=== PATIENT | male | born 1955 | race Caucasian/White ===

== ENCOUNTER 2017-02-01 18:59 | Inpatient (IN) | payer OTHER ==
[2017-02-01] VITALS (10 sets, daily range): BP systolic 66–91; BP diastolic 28–53; PULSE 24–120; RESP 16–27; O2SAT 99–100
[~2017-02-01 18:59] MED LIST: FURO40TA4 PO; OXYC10TA8 PO; OXYC5TAB72 PO; PANT40TA3 PO; PREN1TAB25 PO; Pantoprazole Inj 80 MG in 0.9% Sodium Chloride 80 ML IV SCH; SPIR100T3 PO; THIA100T64 PO
[2017-02-01] MEDS ORDERED: 0.9% Sodium Chloride 1,000 ML IV ONE (19:06)
[2017-02-01] MEDS ORDERED: Pantoprazole 4 mg/mL 10 mL Inj IVPUSH ONE (19:10)
[2017-02-01] MEDS ORDERED: Pantoprazole Inj 80 MG, Pharmacy To Mix 1 EA in 0.9% Sodium Chloride 80 ML IV ONE ×2 (19:10)
[2017-02-01] MEDS ORDERED: Octreotide Inj 500 MCG in 0.9% Sodium Chloride 100 ML IV ONE (19:10)
--- NOTE | 2017-02-01 19:14 | ED.REPORT ---
HPI-GI Bleed Date of Service Feb 01, 2017 ED Provider: Sonu Gonzalez MD Patient is a 61 year old male with a history of end stage liver disease, known esophageal varices and previous banding, alcoholic/viral liver cirrhosis, hepatitis B, hepatitis C who presents to the ED via EMS with 2 episodes of large -volume gross hematemesis that occurred at 1200 today. Patient was hypotensive en route with a systolic BP in 80's - 90's. EMS gave the patient 100mg of fentanyl, Zofran and 500cc of fluids en route. He describes to episodes of bright red emesis. Patient reports that he has felt lightheaded. Family reports that he has one episode previously and was able to be stabilized. Code status is discussed with the patient and he would like to be full code at this time. Nursing Notes Stated Complaint: VOMITING BLOOD Nursing Notes Reviewed: Yes Allergies: Uncoded Allergies: ANESTHETICS (Allergy, Severe, PROLONGED SEDATION, 04/14/16) Scheduled Furosemide (Furosemide) 40 Mg Tablet 40 MG PO DAILY Lactulose (Constulose) 10 Gm/15 Ml Solution 15 ML PO Q2DAY Pantoprazole DR (Pantoprazole DR) 40 Mg Tablet.dr 40 MG PO BID Vit#96/Ferrous Fum/FA ( Tablet) 1 Each Tablet 1 TABLET PO DAILY Spironolactone (Spironolactone) 100 Mg Tablet 100 MG PO DAILY Thiamine Mononitrate (Vitamin B-1) 100 Mg Tablet 100 MG PO DAILY Scheduled PRN oxyCODONE (oxyCODONE) 15 Mg Tablet 15 MG PO QID PRN PRN For Pain General Time Seen by Provider: 18:59 Chief Complaint Chief Complaint: Vomiting bright red blood Hx Obtained From: Patient Arrived By: Ambulance Onset Occurred: 1 - 4 hours ago Symptom Duration: Since onset Progression Since Onset: Unchanged Associated with: Reports: Faintness Pertinent Negative: Pt denies other symptoms Recent Healthcare: Recent doctor visit, Recent hospitalization Risk-GI Bleed Bleeding Risk Stratification RF Statements: Risk factors reviewed Past Medical History Past Medical History Alcoholic liver cirrhosis Nephritis Esophageal varices and banding Chronic back pain Hepatitis C Hepatitis B Past Surgical History None reported. Smoking History Current Every Day Smoker Social History Alcohol Use: >5 per day Drug Use: Denies drug use Other Social History: Good social support, Local resident Ambulatory Status Independent Review of Systems GI: Reports: Abdominal pain, Hematemesis (2 episodes ), Vomiting Neurologic: Reports: Lightheaded Complete sys rev & neg: except as marked. Physical Exam Initial Vital Signs Vital Signs (First) Date Time Temp Pulse Resp B/P Pulse Ox O2 Delivery O2 Flow Rate FiO2 02/01/17 19:00 66 16 87/28 99 Nasal Cannula 1 HR: 101 BP: 80/40 O2 100 Initial VS: Reviewed Neck: Supple, Non-tender, Full range of motion Extremities: Vascular intact, Neuro intact, No tenderness Neurologic: Alert, Oriented, Nonfocal Psychiatric: Mood/affect normal, Behavior normal, Normal thought content General/Constitutional: Awake, Alert Appearance / Presentation: Positive: Ill appearing/not toxic, Pale GENERAL: Answering questions appropriately Respiratory / Chest: Atraumatic, Breath sounds NL, Breath sounds = bilat, No respiratory distress CHEST: spider angioma of chest Cardiovascular: Heart rate NL, Regular rhythm, Heart sounds NL, No gallop, No murmurs, No rubs Lower Ext Edema: Positive: Bilateral 2+, Pitting Abdomen: Atraumatic, Soft Tenderness/Guarding/Rebound: Positive: Tender diffuse (Mild) ABDOMEN: abdominal ascites present Head / Eyes: Atraumatic, Normocephalic, PERRL ENT: Atraumatic, Airway patent Mouth: Positive: Mucous membranes dry Skin Skin: Atraumatic, Dry Color / Condition: Positive: Jaundice present Neurologic: Oriented X3, Speech NL, No motor deficits, No sensory deficits NEURO: Able to respond to questions Interpretation & Diagnostics Lab Results Interpretation Result Diagram: 02/01/17 1900 02/01/17 1900 Test 02/01/17 19:00 02/01/17 20:15 White Blood Count 22.4th/mm3 (3.8-10.1) Red Blood Count 2.69mil/mm3 (4.40-5.80) Hemoglobin 7.9g/dL (13.8-17.2) Hematocrit 24.3% (41.0-50.0) Mean Corpuscular Volume 90.3fL (81-100) Mean Corpuscular Hemoglobin 29.4pg (27.0-35.0) Mean Corpuscular Hemoglobin Concent 32.5% (32.0-37.0) Red Cell Distribution Width 19.6% (12.3-15.4) Platelet Count 90bil/L (150-400) Neutrophils (%) (Auto) 92% (40-74) Lymphocytes (%) (Auto) 2% (14-46) Monocytes (%) (Auto) 2% (4-12) Eosinophils (%) (Auto) 0% (0-5) Basophils (%) (Auto) 0% (0-3) Band Neutrophils % 4% (1-5) Metamyelocytes % % (0-0) Prothrombin Time 31.4sec (8.1-12.5) Prothromb Time International Ratio 2.87ratio Fibrinogen 64mg/dL (157-380) Sodium Level 122mEq/L (134-144) Potassium Level 6.0mEq/L (3.5-5.2) Chloride Level 83mEq/L (97-108) Carbon Dioxide Level 5mmol/L (18-29) Blood Urea Nitrogen 28mg/dL (8-27) Creatinine 2.05mg/dL (0.76-1.27) Estimat Glomerular Filtration Rate 35mL/min (>59) Glucose Level 53mg/dL (60-99) Calcium Level 8.0mg/dL (8.5-10.1) Magnesium Level 2.2mg/dL (1.6-2.6) Total Bilirubin 6.4mg/dL (0.0-1.2) Aspartate Amino Transf (AST/SGOT) 507U/L (0-50) Alanine Aminotransferase (ALT/SGPT) 139U/L (0-44) Alkaline Phosphatase 78U/L (25-160) Total Protein 5.0g/dL (6.4-8.4) Albumin 1.9g/dL (3.4-5.0) Prealbumin 4mg/dL (20-40) Lactic Acid Level 21.5mmol/L (0.4-2.0) ECG Interpretation ECG Interpretation: Sinus Rhythm Rate 77 Normal axis Prolonged QT interval No ST changes No T wave abnormalities When compared to prior 07/23/16 - no longer bradycardic Time: 20:15 Interpreted by: ED physician X-Ray Chest Interpretation Chest Xray Interpretation: IMPRESSION: No acute disease Dictated by: Chris Capone M.D. 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 Patient reports that he feels lightheaded and presyncopal. He arrives with a systolic blood pressure in the 80s. Upon arrival 2 large-bore IVs were obtained. A 1 L fluid bolus was administered and we initiated resuscitation with O- blood. GI was called to the bedside. Patient was started on octreotide bolus/confusion as well as pantoprazole bolus and infusion. Given Zofran for nausea and hydromorphone for pain. Chest X-ray IMPRESSION: No acute disease EKG Sinus Rhythm Rate 77 Normal axis Prolonged QT interval No ST changes No T wave abnormalities When compared to prior 07/23/16 - no longer bradycardic Laboratory studies notable as below: Leukocytosis 22.4 markedly increase from prior Hct 24.3 near baseline Plt 90 increased from baseline INR 2.87 markedly increased baseline near 1.25 Na+ 122 decreased from baseline K + 6 markedly increased baseline CO2 - 5 BUN increased from baseline Lactic Acid 22 Transaminases elevated from baseline Despite aggressive resuscitation with O- blood the patient's blood pressure downtrended into the 70s systolic. I continued to aggressively administer blood products. Given the patient's significant coagulopathy and low platelets I administered fresh frozen plasma as well as platelets. He was seen and evaluated by anesthesiology as well as gastroenterology. He was felt to be highly unstable for intervention in the operative room. Despite aggressive ongoing resuscitation the patient remained hypotensive. Patient was discussed with manager oncology and accepted for further management in the ICU. Meanwhile patient continued to be assessed at the bedside by GI Dr. Sanders as well as anesthesiology. After further discussions between the patient, anesthesiology and Dr. Sanders the patient opted to move towards comfort care and was made DNR/ DNI. Given the patient's new goals of care was no longer felt that he required admission to the intensive care unit. He was therefore admitted to the reyes with plan for comfort measures per his wishes. Re-Evaluation/Progress #1: Time of Eval: 19:20 Re-Evaluation/Progress Note: Transfusion initiated Re-Evaluation/Progress #2: Time of Eval: 19:57 Re-Evaluation/Progress Note: Symptoms imporved following transfusion. BP 90/65 Re-Evaluation/Progress #3: Time of Eval: 20:25 Patient Status: Condition improved Re-Evaluation/Progress Note: Discussed plan with family. All questions are addressed. Re-Evaluation/Progress #4: Time of Eval: 20:59 Patient Status: Condition improved Re-Evaluation/Progress Note: Code status is discussed again in the presence of family. Patient reports that he would like to be comfort care only. Consultation #1: Referral / Consult Name: Reddy Sanders MD Call Returned at: 19:09 Track Man: Will see patient, Agrees with eval, Agrees with plan Note: GI Consultation #2: Referral / Consult Name: Joaquin Sampson MD Consulted With: Hospitalist Call Returned at: 21:03 Track Man: Will see patient, Agrees with eval, Agrees with plan, Accepts admit Consultation #3: Consulted With: Anesthesia Call Returned at: 21:08 Track Man: Will see patient, Agrees with eval, Agrees with plan Note: Dr. Lord Counseled Regarding: Diagnosis, Lab results, Need for admission Discharge & Departure Impression: Primary Impression: Hematemesis Nausea presence: unspecified Qualified Code: K92.0 - Hematemesis Additional Impressions: End stage liver disease Hepatocellular carcinoma Esophageal varices Esophageal varices type: unspecified type Esophageal varices bleeding: with bleeding Qualified Code: I85.01 - Esophageal varices with bleeding Hypovolemic shock GI hemorrhage GI bleed type/associated pathology: unspecified gastrointestinal hemorrhage type Qualified Code: K92.2 - Gastrointestinal hemorrhage, unspecified Lactic acidosis Metabolic acidosis Leukocytosis Leukocytosis type: unspecified Qualified Code: D72.829 - Elevated white blood cell count, unspecified Coagulopathy Thrombocytopenia Hypotension Hypotension type: unspecified hypotension type Qualified Code: I95.9 - Hypotension, unspecified Disposition: ADMITTED TO HOSPITAL Discharge Condition All VS Reviewed: Yes Condition: Critical Referrals: NOPCP (PCP) Crit Care Except Billable Proc Time Spent: 135-164 minutes Services Performed: Patient management by me, Time spent at bedside, Reviewing test results, Reviewing imaging, Discussing patient care, Documentation in record, Time with fam/surrogate Critical Care Notes: Prearrival preparations, discussions with consultants, documentation Scribe Attestation Portions of this note were transcribed by Ct [place]. I, Dr. Gonzalez personally performed the history, physical exam and medical decision-making; I reviewed and confirmed the accuracy of the information in the transcribed note. Signed by: Haris Lehman, 02/01/17 2105. Sonu Gonzalez MD Feb 01, 2017 19:14 [facility] Feb 01, 2017 19:25
[2017-02-01] MEDS ORDERED: Ondansetron 2 mg/mL 2 mL Inj IVPUSH PRN ×3 (19:15→21:25)
[2017-02-01] MEDS ORDERED: Alum-Mag Hydrox-Simeth 30 mL Suspension PO PRN ×2 (19:15→19:40)
[2017-02-01 19:18] LABS: Mean Corpuscular Volume 90.3 fL (81-100); Platelet Count 90 bil/L (150-400)
[2017-02-01 19:22] LABS: Mean Corpuscular Hemoglobin 29.4 pg (27.0-35.0)
[2017-02-01 19:26] LABS: INR 2.87 ratio
[2017-02-01 19:28] LABS: Magnesium 2.2 mg/dL (1.6-2.6)
[2017-02-01 19:37] LABS: BASOPHILS % (AUTO) 0 % (0-3); EOSINOPHILS % (AUTO) 0 % (0-5); MONOCYTES % (AUTO) 2 % (4-12); NEUTROPHILS % (AUTO) 92 % (40-74)
[2017-02-01] MEDS ORDERED: Senna-Docusate 8.6-50 mg Tablet PO PRN (19:40)
[2017-02-01] MEDS ORDERED: Polyethylene Glycol (PEG) 17 Gm Powder PO PRN (19:40)
--- NOTE | 2017-02-01 19:44 | DRSVH ---
PROCEDURE: X-RAY CHEST ONE VIEW, PORTABLE ([id number]) INDICATIONS: vomiting blood TECHNIQUE: One view of the chest was acquired. COMPARISON: [facility], CR, XR CHEST 1VW (PORTABLE), 04/14/2016, 16:07. FINDINGS: Surgical changes and devices: None. Lungs and pleura: No pleural effusions or pneumothorax. Lungs are clear. Mediastinum: Mediastinal contours appear normal. Heart size is normal. Bones and chest wall: No suspicious bony lesions. Overlying soft tissues appear unremarkable. IMPRESSION: No acute disease Dictated by: Chris Capone M.D. on 02/01/2017 at 19:41 Approved by: Chris Capone M.D. on 02/01/2017 at 19:42
[2017-02-01] MEDS ORDERED: LACT10SO64 PO (19:52)
[2017-02-01] MEDS ORDERED: Lactated Ringer's 1,000 ML IV ONE (19:52)
[2017-02-01] MEDS ORDERED: OXYC15TA79 PO (19:52)
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
[2017-02-01] MEDS ORDERED: cefTRIAXone Inj 1,000 MG in Dextrose 5% Minibag Plus 50 ML IV ONE (19:55)
[2017-02-01] MEDS ORDERED: Insulin Human REGular Inj 100 UNIT in 0.9% Sodium Chloride-Pha MIX 100 ML IV SCH (20:20)
[2017-02-01] MEDS ORDERED: HYDROmorphone 0.5 mg/0.5 mL iSecure Syringe IVPUSH ONE (20:25)
[2017-02-01] MEDS ORDERED: 0.9% Sodium Chloride 1,000 ML IV SCH (20:35)
[2017-02-01] MEDS ORDERED: Calcium GLUCOnate 10% (Gm) 1 Gm/10 mL Inj IVPUSH PRN (20:55)
[2017-02-01] MEDS ORDERED: HYDROmorphone 1 mg/mL Inj ONE ×2 (21:03→21:33)
[2017-02-01] MEDS ORDERED: MetoCLOpramide 5 mg/mL 2 mL Inj IVPUSH PRN ×2 (21:20→21:25)
[2017-02-01] MEDS ORDERED: SODIUM CHLORIDE 0.9% IV PRN (21:25)
[2017-02-01] MEDS ORDERED: HYDROMORPHONE HP IV PRN (21:25)
--- NOTE | 2017-02-01 21:45 | PCM.HPMED ---
Subjective Date of Service Feb 01, 2017 Primary Provider: Admitting Physician: Joaquin Sampson MD Primary Care Physician: Nopcp Attending Physician: Joaquin Sampson MD Chief Complaint: Patient is a 61-year-old male with a medical history significant for liver cancer, cirrhosis, and variceal bleeding presented with hematemesis. History of Present Illness: Per patient, he has been having nausea and vomiting for the past 2 days. She states multiple episodes of hematemesis since noon today with associated lightheadedness, abdominal pain, and also melena. Patient reports significantly weak, fatigued. Appetite has been poor, unable to tolerate anything other than juice. His belly has gotten significantly bigger, patient is unsure of weight gain. Patient denies any fevers, chills, or night sweats, nor does he have any chest pain or difficulty breathing. Most recently, patient reported diagnosis in addition to end-stage liver disease , has hepatocellular carcinoma and was followed up with GI down in . Review of Systems: A comprehensive review of systems was conducted with the patient and found to be negative except as above in the History of Present Illness. Allergies Uncoded Allergies: ANESTHETICS (Allergy, Severe, PROLONGED SEDATION, 04/14/16) Home Medications Furosemide 40 mg daily Oxycodone 50 mg 4 times a day when necessary Protonix 40 mg twice a day Spironolactone 100 mg daily Thiamine 100 mg daily PMH History of EtOH abuse Hepatitis C infection Hepatitis B Liver cancer Liver cirrhosis/portal hypertension/variceal bleeding Esophageal varices grade 4 Portal hypertensive gastropathy Nephritis Surgical History Denies any surgical history Family History Father with gastric cancer Mother with migraines Social History Hx Alcohol Use: Yes (States stoppped after last UGI bleed) Hx Substance Use: No Smoking Status: Current Every Day Smoker Exam Vital Signs Vital Sign - Last Date Time Temp Pulse Resp B/P Pulse Ox O2 Delivery O2 Flow Rate FiO2 02/01/17 20:51 66 26 83/43 100 Room Air 02/01/17 19:00 1 Exam General: Fatigued, temporal wasting, jaundice HEENT: Normocephalic, atraumatic. PERRLA, EMOI icteric sclera, dry oral mucosal membranes Neck: No JVD, significant reduced skin turgor Cardiovascular: Regular rate and rhythm with no murmurs, rubs, or gallops appreciated Pulmonary: b/l air sound, no crackles wheezes or rhonchi. No use of accessory muscles. Abdomen: Positive bowel sounds, distended, positive fluid wave, nontender, no rebound tenderness, no signs of retroperitoneal bleeding : No O[place] catheter Extremities: Significant bilateral pitting edema, anasarca Skin: Significant reduction in skin turgor, jaundice, spider angioma Neurological: CN II-VII intact, moving equally on all 4 extremities Psychiatric: AO 3, normal mood and affect. [facility] Lab and Diagnostics Result Diagram: 02/01/17189902/01/171899 Assessment & Plan Pt is a 61-year-old male with a medical history significant for ESLD and variceal bleeding admitted for hypovolemic shock due to likely variceal bleeding , currently on comfort care per the wishes patient and family. Hypovolemic shock - GI bleed, can argue this also septic - Received bolus fluids in addition to blood products - Given patient's overall poor protoplasm and prognosis, patient has elected to place patient on comfort care. Normocytic anemia - Secondary to upper GI bleed, though he can also bleed intra-abdominally as well - Received 2 units of PRBC in addition FFP's Upper GI bleed - Possible ulcer and/or variceal bleeding - Ordered Protonix drip, - Gastroenterology service has been consulted - Plan upper endoscopy when patient stabilized canceled in accord with patient' s wishes End-stage liver disease - with sequela of portal hypertension, ascites, and splenic cicatrization - Significant decrease in synthetic function, INR 2.87 - Ordered octreotide drip Patient Status: Patient is admitted under inpatient status with expected length of stay GREATER than 2 midnights due to severity of presenting symptoms, risk of adverse event, and complexity of treatment plan. End-of-life orders in place. Resuscitation Status: DNR/DNI:Do Not Resuscitate/Intubate Kartik Yu DO Feb 01, 2017 21:45
[2017-02-01] MEDS ORDERED: Morphine 100 mg/100 mL NS 100 MG in IV Premix 1 EACH IV SCH (21:50)
[2017-02-01] MEDS ORDERED: Dexamethasone 4 mg/mL Inj IVPUSH SCH (22:41)
--- NOTE | 2017-02-01 22:43 | CONS ---
[address] [address] CONSULTATION REPORT PATIENT: XIN SHARPE : 1955 MR#: [id number] ADMIT: 02/01/2017 JOB ID: [id number] DATE OF SERVICE: 02/01/2017 It was a pleasure seeing this patient at [facility] for GI bleeding. HISTORY OF PRESENT ILLNESS: This is a 61-year-old gentleman who came in with acute upper GI bleed. Essentially, this is a gentleman who has decompensated liver disease with evidence of portal hypertension with varices. He had multiple admissions in our facility because of the GI bleeding. He was in this place in March and he received 4 units of packed red cells. Upper endoscopy by Dr. Garcia showed four varices. He also had gastric varices. No intervention was done because by the time he was in there nothing was bleeding. He was advised to go to [place] at the [facility] for TIPS consideration. However, he canceled several appointments. Then, he came in again with hematemesis and he had an upper endoscopy by Dr. Maradiaga and again at that time he had varices but nothing active was bleeding at the time. He also had ulcerative esophagitis and portal hypertensive gastropathy and was treated medically. He comes in today with two episodes of hematemesis. He also said he had several black stools before coming in and he started vomiting blood and he called the EMS and he was brought into the emergency department. When he first came in, he was hypotensive with systolic pressure in the 80s and 90s. The patient was given Zofran, 500 cc of fluids. When he first came in, he described bright red emesis. He felt lightheaded, dizzy. In the emergency department, he was hypotensive and tachycardic. He received 4 units of packed red cells. This went in essentially in a little over an hour. He received 2 units of O negative and additional 2 units after he was crossed and typed. He was also given FFP and he was written for platelets as well. He was started on a Protonix bolus and a drip. He was given antibiotics and he was placed on octreotide bolus and a drip. Despite these interventions, his blood pressure did not recover. It went down to 70/30s and at highest it came up to 80/40 at times. His pulse rate remained in the 60s to 90s at times and after all this resuscitation, it was documented at 83/43. Before the resuscitation, GI team was called as well as the anesthesiologist to have this endoscopy done in the OR. There was a conversation between the anesthesiologist and the patient. After this counseling, he wanted to be comfortable.he chose to be comfort care. He did not want endoscopy. I was there listening to the conversation. His family was in agreement. His mother and a sister was there. I have also talked to the patient and the family about the risks and the benefits of the EGD. Obviously, this is high-risk situation, and after this conversation, the patient again elected to be COMFORT CARE. REVIEW OF SYSTEMS: In terms of review of systems, he said he was dizzy and lightheaded, was having abdominal discomfort. No chest pain. He said he was short of breath. PAST MEDICAL HISTORY: Liver cirrhosis, hepatitis B and C, esophageal varices, gastric varices, chronic back pain, nephritis. PAST SURGICAL HISTORY: None reported. SOCIAL HISTORY: Smokes tobacco. Uses alcohol greater than five per day. Denies IV drug abuse. MEDICATION: In the ED, octreotide and pantoprazole. He was written for p.r.n. for Benadryl, Zofran, Reglan, hydromorphone, calcium. He was given a dose of ceftriaxone, octreotide drip, Protonix drip. PHYSICAL EXAMINATION: Patient is alert, was appropriate. He was mentating well. He seemed to understand what is going on and seemed to understand his situation. Head and neck: Does have icterus. Lungs clear. Cardiovascular: Tachy, normal S1, S2. Abdomen: Soft, moderately to significantly distended with decreased bowel sounds. Mild diffuse tenderness. Extremities: Some pitting edema of the ankles. Skin shows jaundice. LABORATORY DATA: White count is 22,000 hemoglobin 7.9, platelets 90,000. INR 2.87, fibrinogen is 64, lactic acid 21.5, potassium 6, sodium 122, chloride 83, carbon dioxide 5, BUN 28, creatinine 2, AST 507, ALT 139, total bili 6.4, albumin 1.9, pre-albumin 4. IMPRESSION and PLAN: This is a gentleman with end-stage liver disease, poor prognosis. Significantly elevated lactic acid as well as evidence of acute renal failure with elevated potassium. He also has significant jaundice with total bilirubin 6.4, INR of 2.8. The patient wanted to be COMFORT CARE. The mother and the sister were in agreement. He wanted to be comfortable. However, if he changed his mind, we would stand by. I would recommend continuing the IV Protonix, IV octreotide and make him as comfortable as possible. His prognosis overall is extremely poor. We will hold off on any invasive procedures as per request per the patient. I spent over 90 minutes seeing the patient, coordinating care with the ED and the anesthesiologist and counseling the patient and the family. SAILAJA
[2017-02-01] MEDS ORDERED: LORazepam 2 mg/mL Inj ANXIETY/AGIT IVPUSH PRN (22:45)
[2017-02-01] MEDS ORDERED: Atropine 1% 5 mL Ophthalmic Solution PO PRN (22:45)
--- NOTE | 2017-02-02 02:31 | NUR ---
Transfer/ Patient and several family members arrived to floor at approximately 2140. Patient in visible pain. Belongings of shirt, pants, shoes, belt and wallet noted. Two peripheral IV sites running medications that were to be DC shortly. Morphine drip established rajat after arrival 1mg/hour. Patient at 0028, family present. Daughter, Hannah, states her father's keys were given to non emergency services ambulance driver and were not present in room. ED contacted, who then contacted transport, currently awaiting response. Daughter became verbally assaultive towards family members, as time passed, accusing them of "Stealing his keys." She held on to his personal items, however refused to sign for them until the keys turned up. She voiced her desire that no family member be permitted to leave until keys were returned. Security was notified after several attempts to calm her down. Meanwhile the remainder of the family left together. Hannah was eventually escorted out. She returned shortly after, agreeing to sign for belongings according to security. Paper work was reprinted, sent with security to be signed, and returned, as body and belongings had already been transported off unit.
--- NOTE | 2017-02-02 05:25 | PCM.DC.MED ---
Discharge Summary Date of Service Feb 02, 2017 Dates of Hospitalization Date of Hospital Admission Feb 01, 2017 at 20:42 Date of Discharge: Feb 02, 2017 Providers: Admitting Physician: Joaquin Sampson MD Primary Care Physician: Romi Attending Physician: Joaquin Sampson MD Diagnosis at Time of Discharge Diagnosis at Time of Discharge Hypovolemic shock due to gastrointestinal bleeding. Consultations GI Consultation (Dr Blakely) "IMPRESSION: This is a gentleman with end-stage liver disease, poor prognosis. Significantly elevated lactic acid as well as evidence of acute renal failure with elevated potassium. He also has significant jaundice with total bilirubin 6.4, INR of 2.8. He also has elevated white count of 22,000 as well as low platelets and low hemoglobin. Under those circumstances, probably his hemoglobin is a lot lower. We gave him 4 units of blood as well as FFP and some platelets. His pressure did not recover. I was there in the conversation and after the conversation with the anesthesiologist, the patient wanted to be COMFORT CARE. The mother and the sister were in agreement. He wanted to be comfortable. I have also informed him that the endoscopic portion of this would be a relatively high-risk procedure, but if he wanted to proceed we could proceed with the upper endoscopy only if he chose to. He wanted to be comfort care. I would recommend continuing the IV Protonix, IV octreotide and make him as comfortable as possible. His prognosis overall is extremely poor. We will hold off on any invasive procedures as per request per the patient. Procedures XRay, CTs & MRIs Chest X-ray IMPRESSION: No acute disease ECG 12 Lead EKG Sinus Rhythm Rate 77 Normal axis Prolonged QT interval No ST changes No T wave abnormalities When compared to prior 07/23/16 - no longer bradycardic Brief History Per patient, he has been having nausea and vomiting for the past 2 days. He states multiple episodes of hematemesis since noon today with associated lightheadedness, abdominal pain, and also melena. Patient reports significantly weak, fatigued. Appetite has been poor, unable to tolerate anything other than juice. His belly has gotten significantly bigger, patient is unsure of weight gain. Patient denies any fevers, chills, or night sweats, nor does he have any chest pain or difficulty breathing. Most recently, patient reported diagnosis in addition to end-stage liver disease , has hepatocellular carcinoma and was followed up with GI down in . Hospital Course Pt is a 61-year-old male with a medical history significant for ESLD and variceal bleeding admitted for hypovolemic shock due to likely variceal bleeding , currently on comfort care per the wishes patient and family. Hypovolemic shock - GI bleed, can argue this also septic - Received bolus fluids in addition to blood products - Given patient's overall poor protoplasm and prognosis, patient has elected to place patient on comfort care. - Pt on 02/02/2017 at 12:40 AM. Normocytic anemia - Secondary to upper GI bleed, though he can also bleed intra-abdominally as well - Received 2 units of PRBC in addition FFP's Upper GI bleed - Possible ulcer and/or variceal bleeding - Ordered Protonix drip, - Gastroenterology service has been consulted - Pt is now comfort care with no further invasive interventions. End-stage liver disease - with sequela of portal hypertension, ascites, and splenic cicatrization - Significant decrease in synthetic function, INR 2.87 - Ordered octreotide drip Patient Status: Patient is admitted under inpatient status with expected length of stay GREATER than 2 midnights due to severity of presenting symptoms, risk of adverse event, and complexity of treatment plan. End-of-life orders in place. Exam Vital Signs (Last) Date Time Temp Pulse Resp B/P Pulse Ox O2 Delivery O2 Flow Rate FiO2 02/01/17 22:03 24 02/01/17 21:30 26 66/40 100 Nasal Cannula 1 Test 02/01/17 19:00 02/01/17 20:15 White Blood Count 22.4th/mm3 (3.8-10.1) Red Blood Count 2.69mil/mm3 (4.40-5.80) Hemoglobin 7.9g/dL (13.8-17.2) Hematocrit 24.3% (41.0-50.0) Mean Corpuscular Volume 90.3fL (81-100) Mean Corpuscular Hemoglobin 29.4pg (27.0-35.0) Mean Corpuscular Hemoglobin Concent 32.5% (32.0-37.0) Red Cell Distribution Width 19.6% (12.3-15.4) Platelet Count 90bil/L (150-400) Neutrophils (%) (Auto) 92% (40-74) Lymphocytes (%) (Auto) 2% (14-46) Monocytes (%) (Auto) 2% (4-12) Eosinophils (%) (Auto) 0% (0-5) Basophils (%) (Auto) 0% (0-3) Band Neutrophils % 4% (1-5) Metamyelocytes % % (0-0) Prothrombin Time 31.4sec (8.1-12.5) Prothromb Time International Ratio 2.87ratio Fibrinogen 64mg/dL (157-380) Sodium Level 122mEq/L (134-144) Potassium Level 6.0mEq/L (3.5-5.2) Chloride Level 83mEq/L (97-108) Carbon Dioxide Level 5mmol/L (18-29) Blood Urea Nitrogen 28mg/dL (8-27) Creatinine 2.05mg/dL (0.76-1.27) Estimat Glomerular Filtration Rate 35mL/min (>59) Glucose Level 53mg/dL (60-99) Calcium Level 8.0mg/dL (8.5-10.1) Magnesium Level 2.2mg/dL (1.6-2.6) Total Bilirubin 6.4mg/dL (0.0-1.2) Aspartate Amino Transf (AST/SGOT) 507U/L (0-50) Alanine Aminotransferase (ALT/SGPT) 139U/L (0-44) Alkaline Phosphatase 78U/L (25-160) Total Protein 5.0g/dL (6.4-8.4) Albumin 1.9g/dL (3.4-5.0) Prealbumin 4mg/dL (20-40) Lactic Acid Level 21.5mmol/L (0.4-2.0) Discharge Medications Discharge Medications Furosemide (Furosemide) 40 Mg Tablet 40 MG PO DAILY Prescribed by: KENISHA GARCIA MD Lactulose (Constulose) 10 Gm/15 Ml Solution 15 ML PO Q2DAY (Reported) Pantoprazole (Pantoprazole DR) 40 Mg Tablet.dr 40 MG PO BID Prescribed by: KENISHA GARCIA MD Vit#96/Ferrous Fum/FA ( Tablet) 1 Each Tablet 1 TABLET PO DAILY Prescribed by: ENRICO CALDERÓN MD Spironolactone (Spironolactone) 100 Mg Tablet 100 MG PO DAILY Prescribed by: KENISHA GARCIA MD Thiamine Mononitrate (Vitamin B-1) 100 Mg Tablet 100 MG PO DAILY (Reported) As needed oxyCODONE (oxyCODONE) 15 Mg Tablet 15 MG PO QID PRN PRN For Pain (Reported) Followup Plan Disposition: Pt Joaquin Sampson MD Feb 02, 2017 05:25
[2017-02-02] MEDS ORDERED: Octreotide Inj 500 MCG in 0.9% Sodium Chloride 99 ML IV SCH (05:45)
[2017-02-02] MEDS ORDERED: Pantoprazole Inj 80 MG in 0.9% Sodium Chloride 80 ML IV SCH (05:45)
[2017-02-02] MEDS ORDERED: cefTRIAXone Inj 1,000 MG in Dextrose 5% Minibag Plus 50 ML IV SCH (20:30)
== END 2017-02-02 00:28 | disposition expired | DRG 378 ==
LOC: SED 18:59 → CCU 20:42 → OSC 21:22
PROVIDERS: ADMIT Internal Medicine; ATTEND Internal Medicine
PROC: 30233K1 Transfusion of Nonautologous Frozen Plasma into Peripheral Vein, Percutaneous Approach (ICD-10-PCS; principal; 2017-02-01)
PROC: 30233N1 Transfusion of Nonautologous Red Blood Cells into Peripheral Vein, Percutaneous Approach (ICD-10-PCS; 2017-02-01)
PROC: 30233R1 Transfusion of Nonautologous Platelets into Peripheral Vein, Percutaneous Approach (ICD-10-PCS; 2017-02-01)
DX: K92.0 Hematemesis (principal); C22.7 Other specified carcinomas of liver; R57.8 Other shock; B19.10 Unspecified viral hepatitis B without hepatic coma; K76.6 Portal hypertension; K70.30 Alcoholic cirrhosis of liver without ascites; E87.2 Acidosis; F17.200 Nicotine dependence, unspecified, uncomplicated; Z51.5 Encounter for palliative care; Z66 Do not resuscitate; M62.50 Muscle wasting and atrophy, not elsewhere classified, unspecified site; I85.10 Secondary esophageal varices without bleeding; F10.10 Alcohol abuse, uncomplicated